=== PATIENT | female | born 1990 | race Caucasian/White ===

== ENCOUNTER 2019-12-26 20:23 | Inpatient (IN) | payer MEDICAID, OTHER ==
[~2019-12-26] VITALS: Ht 170.2 cm; Wt 82.0 kg
[2019-12-26 21:20] LABS: Urine Bacteria FEW /hpf (None Seen); Urine Blood Negative /uL (Negative); Urine Mucus FEW (None Seen); Urine Specific Gravity 1.026 (1.001-1.035); Urine WBC 23 /hpf (0 - 5)
[2019-12-26 22:11] LABS: Basophils # (auto) 0 10 ^3/uL (0-0.2); Basophils % (auto) 0.2 % (0.0-2.0); Eosinophils # (auto) 0 10 ^3/uL (0-0.8); Hematocrit 41.3 % (36.0-46.0); Hemoglobin 13.3 g/dL (12.2-16.2); Lymphocytes # (auto) 0.9 10 ^3/uL (0.4-5.4); Lymphocytes % (auto) 4.4 % (10.0-50.0); Mean Corpuscular Hemoglobin 26.8 pg (28.0-32.0); Mean Corpuscular Hgb Conc. 32.2 g/dL (32.0-36.0); Mean Corpuscular Volume 83.1 fL (80.0-100.0); Monocytes # (auto) 1.4 10 ^3/uL (0-1.3); Monocytes % (auto) 7.3 % (0.0-12.0); Neutrophils # (auto) 17.4 10 ^3/uL (1.6-8.6); Neutrophils % (auto) 88.1 % (37.0-80.0); Red Blood Cells 4.97 10^6/uL (4.0-5.20); White Blood Cell 19.8 10^3/uL (4.4-10.8)
[2019-12-26 22:12] LABS: Platelet Count (auto) 221 10^3/uL (140-450); Red Cell Distribution Width 14.9 % (11.8-14.3)
[2019-12-26 22:30] LABS: Albumin 3.6 g/dL (3.4-5.0); Calcium 8.9 mg/dL (8.5-10.1); Magnesium 2.2 mg/dL (1.6-2.6); Potassium 3.5 mmol/L (3.5-5.1)
[2019-12-26 22:34] LABS: Bilirubin, Total 2.7 mg/dL (0.2-1.0)
[2019-12-26] MEDS ORDERED: cefTRIAXone 1GM/50ML D5W 50 ML IV ONE (23:00)
[2019-12-26] MEDS ORDERED: metroNIDAZOLE 500MG/100ML 100 ML IV ONE (23:00)
[2019-12-26] MEDS ORDERED: SODIUM CHLORIDE 0.9% 1,000 ML IV SCH (23:16)
[2019-12-26] MEDS ORDERED: DOCUSATE SOD 100 MG CAP PO PRN (23:30)
[2019-12-26] MEDS ORDERED: MORPHINE SULF INJ 2 MG/ML SYRINGE 1ML IV PRN (23:30)
[2019-12-26] MEDS ORDERED: LORazepam 0.5 MG TAB PO PRN (23:30)
[2019-12-26] MEDS ORDERED: SODIUM CHLORIDE 0.9% 1,000 ML IV ONE (23:30)
[2019-12-26] MEDS ORDERED: ONDANSETRON HCL 4 MG/2 ML VIAL IV PRN (23:30)
[2019-12-26] MEDS ORDERED: ACETAMINOPHEN 325 MG TAB PO PRN (23:30)
[2019-12-26] MEDS ORDERED: HYDROcodone-ACET 5/325MG TAB PO PRN (23:30)
--- NOTE | 2019-12-27 02:50 | NUR ---
MS admit from ER: Patient admitted to [facility]. Patient oriented to primary RN, unit, room, bed, and unit policies regarding patient care and visiting hours. Patient weighed by bed scale and encouraged to call if they need something. Bed in lowest locked position with two side rails raised and call gardner within reach. Instructed on POC, All questions and concerns addressed, patient verbalized understanding.
--- NOTE | 2019-12-27 03:30 | NUR ---
Patient's pepper spray in bag with label and now with security.
[2019-12-27 03:49] VITALS: BP 125/73
--- NOTE | 2019-12-27 04:30 | NUR ---
Patient is refusing labs, vitals, and treatments stating "I need my sleep and I don't want people bothering me. The doctor will just have to reschedule my surgery." Discussed risks, patient continues to refuse any treatments at this time. Will continue to provide education and monitor patient
[2019-12-27 05:00] VITALS: BP 125/73
--- NOTE | 2019-12-27 05:19 | NUR ---
After speaking with patient about risks and benefits of surgery she agreed to allow lab to draw blood. Patient still refuses vitals and medications at this time. Will continue to provide education and monitor patient.
[2019-12-27 05:33] LABS: Basophils # (auto) 0.1 10 ^3/uL (0-0.2); Eosinophils # (auto) 0 10 ^3/uL (0-0.8); Monocytes # (auto) 1.1 10 ^3/uL (0-1.3); Monocytes % (auto) 6.7 % (0.0-12.0)
[2019-12-27 05:34] LABS: Basophils % (auto) 0.5 % (0.0-2.0); Eosinophils % (auto) 0.1 % (0.0-7.0); Hematocrit 38.6 % (36.0-46.0); Hemoglobin 12.7 g/dL (12.2-16.2); Lymphocytes # (auto) 1.6 10 ^3/uL (0.4-5.4); Lymphocytes % (auto) 9.8 % (10.0-50.0); Mean Corpuscular Hemoglobin 27.3 pg (28.0-32.0); Mean Corpuscular Hgb Conc. 32.9 g/dL (32.0-36.0); Mean Corpuscular Volume 82.8 fL (80.0-100.0); Neutrophils # (auto) 13.5 10 ^3/uL (1.6-8.6); Neutrophils % (auto) 82.9 % (37.0-80.0); Platelet Count (auto) 198 10^3/uL (140-450); Red Blood Cells 4.66 10^6/uL (4.0-5.20); Red Cell Distribution Width 15.2 % (11.8-14.3); White Blood Cell 16.3 10^3/uL (4.4-10.8)
[2019-12-27] MEDS: metroNIDAZOLE 500MG/100ML 100 ML IV SCH ×3 (05:41→17:25)
--- NOTE | 2019-12-27 05:41 | NUR ---
Patient states, "I do not believe this is actually appendicitis and I want someone to show me the scans and point out the source so I can see for myself." Education provided regarding diagnosis, and patient would still like to speak to MD regarding the need for surgery and would like to explore alternative methods. Will endorse
[2019-12-27 05:55] LABS: Calcium 8.1 mg/dL (8.5-10.1); Potassium 3.9 mmol/L (3.5-5.1)
--- NOTE | 2019-12-27 07:30 | NUR ---
Opening Shift Note Assumed care of patient, awake and alert. No S/S of distress/SOB or pain. Instructed on POC and to call for assist PRN, will continue to monitor for changes Q1hr and PRN.
[2019-12-27 07:45] LABS: INR 1.11 (0.9-1.15); Partial Thromboplastin Time 26.5 sec (23.64-32.05)
--- NOTE | 2019-12-27 09:05 | NUR ---
Opening shift note: Assumed care of patient. Patient awake, alert and oriented x 4. No s/s of SOB or distress, patient denies pain. Bed in lowest locked position with two side rails raised and call gardner within reach. Instructed on POC and encouraged to use call gardner for assistance, all questions and concerns addressed, patient verbalizes understanding. Will continue to monitor Q1 hr and PRN. Addendum: 12/27/19 at 1928 by ALMA VARGAS RN RN Wrong time. Time 1904
--- NOTE | 2019-12-27 10:35 | NUR ---
Patient taken to OR via bed. Chart, consents, surgical checklist in chart. Surgical consents not signed as Dr. Bustamante has not yet spoken to the patient. Per [employer], Dr. Bustamante will speak to the patient in Pre-op. Patient informed and agrees.
[2019-12-27] MEDS ORDERED: LIDOCAINE 1% (LOCAL ANESTH.) PF 5ml SDV ONE (10:51)
[2019-12-27] MEDS ORDERED: SUCCINYLCHOLINE CHLORIDE 20 MG/ML 10ML VIAL IV ONE (10:51)
[2019-12-27] MEDS ORDERED: ROCURONIUM 10MG/ML 10ML VIAL IV ONE (10:55)
[2019-12-27] MEDS ORDERED: PROPOFOL 10 MG/ML 20 ML IV ONE (10:58)
[2019-12-27] MEDS ORDERED: HYDROmorphone HCL 2 MG/ML VL IV PRN ×3 (11:00→12:00)
[2019-12-27] MEDS ORDERED: ONDANSETRON HCL 4 MG/2 ML VIAL IV PRN ×2 (11:00→12:00)
[2019-12-27] MEDS ORDERED: NALOXONE HCL 0.4 MG/ML VIAL IV PRN (11:00)
[2019-12-27] MEDS ORDERED: MIDAZOLAM HCL 1MG/1ML-2 ML VIAL ONE (11:09)
[2019-12-27] MEDS ORDERED: fentaNYL CITRATE 100 MCG/2 ML VL ONE (11:18)
[2019-12-27] MEDS ORDERED: STERILE WATER 10 ML ONE (11:32)
[2019-12-27] MEDS ORDERED: ePHEDrine SULFATE 50 MG/ML AMP ONE (11:32)
[2019-12-27] MEDS ORDERED: GLYCOPYRROLATE 0.2 MG/ML 1ML VIAL ONE (11:46)
[2019-12-27] MEDS ORDERED: NEOSTIGMINE 1 MG/ML INJ (10mg/10ML VIAL) ONE (11:46)
--- NOTE | 2019-12-27 12:55 | NUR ---
Patient returned to room. Patient is sleepy but alert and oriented. Three small dressings noted to abdomen. NILDA drain to RLQ. Abdominal binder in place. Call light in reach. Will continue to monitor.
--- NOTE | 2019-12-27 14:45 | NUR ---
Patient ambulated to the bathroom with standby assist. Tolerated well. Patient states she was able to void. Will continue to monitor.
--- NOTE | 2019-12-27 16:07 | NUR ---
Patient is sleeping without distress. Call light in reach. Will continue to monitor.
[2019-12-27 16:49] VITALS: BP 131/80
--- NOTE | 2019-12-27 16:51 | NUR ---
Dr. Gabino Nguyen in to see patient as primary MD. Dr. Nguyen informed the patient has been OOB and ambulated to the bathroom. He explained to the patient that she will probably be discharged in AM.
[2019-12-27] MEDS: D5W/SOD CHL 0.45%/KCL 20MEQ 1,000 ML IV SCH ×2 (17:25→21:27)
--- NOTE | 2019-12-27 19:05 | NUR ---
Opening shift note: Assumed care of patient. Patient awake, alert and oriented x 4. No s/s of SOB or distress, patient denies pain. Bed in lowest locked position with two side rails raised and call gardner within reach. Instructed on POC and encouraged to use call gardner for assistance, all questions and concerns addressed, patient verbalizes understanding. Will continue to monitor Q1 hr and PRN.
--- NOTE | 2019-12-27 19:30 | NUR ---
Patient ambulating in the [place] with standby assistance. Patient tolerating well. Will continue to monitor.
[2019-12-27 21:00] VITALS: BP 121/79
[2019-12-27] MEDS ORDERED: cefTRIAXone 1GM/50ML D5W 50 ML IV SCH (22:00)
[2019-12-28] MEDS: metroNIDAZOLE 500MG/100ML 100 ML IV SCH ×3 (00:11→11:12)
[2019-12-28] MEDS ORDERED: HYDROcodone-ACET 5/325MG TAB PO PRN (01:15)
[2019-12-28 05:00] VITALS: BP 116/84
[2019-12-28] MEDS: ACETAMINOPHEN 325 MG TAB PO PRN ×2 (05:27→13:35)
[2019-12-28 06:49] LABS: Basophils # (auto) 0 10 ^3/uL (0-0.2); Basophils % (auto) 0.2 % (0.0-2.0); Eosinophils # (auto) 0 10 ^3/uL (0-0.8); Eosinophils % (auto) 0.1 % (0.0-7.0); Hemoglobin 12.6 g/dL (12.2-16.2); Lymphocytes # (auto) 1.4 10 ^3/uL (0.4-5.4); Monocytes # (auto) 0.9 10 ^3/uL (0-1.3); Neutrophils # (auto) 11.1 10 ^3/uL (1.6-8.6); White Blood Cell 13.5 10^3/uL (4.4-10.8)
[2019-12-28 06:52] LABS: Hematocrit 38.8 % (36.0-46.0); Lymphocytes % (auto) 10.5 % (10.0-50.0); Mean Corpuscular Hgb Conc. 32.4 g/dL (32.0-36.0); Mean Corpuscular Volume 83.2 fL (80.0-100.0); Neutrophils % (auto) 82.2 % (37.0-80.0); Platelet Count (auto) 203 10^3/uL (140-450); Red Blood Cells 4.67 10^6/uL (4.0-5.20); Red Cell Distribution Width 15.1 % (11.8-14.3)
[2019-12-28 07:11] LABS: Calcium 8.5 mg/dL (8.5-10.1); Magnesium 2.5 mg/dL (1.6-2.6); Potassium 3.7 mmol/L (3.5-5.1)
[2019-12-28 07:14] LABS: BUN/Creatinine Ratio 11.3
--- NOTE | 2019-12-28 07:40 | NUR ---
Opening Note Assumed pt care from NOC RN. Pt is a/ox4 with no s/s of distress or SOB. Pt is currently laying in bed with no complaints at this time.Iscision to abdomen is clean, dry and intact. NILDA drain is present, minimal serous sanguinous drainage present. Discussed POC with pt; pt verbalized understanding. Safety measures maintained with call light within reach, bed in lowest position and side rails p. Will continue to monitor.
[2019-12-28] MEDS: D5W/SOD CHL 0.45%/KCL 20MEQ 1,000 ML IV SCH (08:00)
[2019-12-28 09:00] VITALS: BP 121/81
--- NOTE | 2019-12-28 10:02 | NUR ---
NILDA Drain 15 mL of serous sanguinous drainage drained from NILDA drain.
[2019-12-28 13:00] VITALS: BP 130/65
--- NOTE | 2019-12-28 13:15 | NUR ---
Dr Aleksander Nguyen Called Requested update on patient. Requested that we have Robby clear pt before d/c. Paged Dr Bustamante for clearance. Will continue to monitor and notify MD> Addendum: 12/28/19 at 1438 by ERIC COLORADO RN RN Second page sent out to Dr Bustamante. Will continue to monitor. Addendum: 12/28/19 at 1458 by ERIC COLORADO RN RN Dr Bustamante paged back; cleared pt for d/c. Paged Dr Nguyen for update. Will continue to monitor. Addendum: 12/28/19 at 1632 by ERIC COLORADO RN RN Second page sent to Dr Aleksander Nguyen. Will continue to monitor. Addendum: 12/28/19 at 1656 by ERIC COLORADO RN RN PAGED BACK. ORDERS PROVIDED. WILL IMPLEMENT.
[2019-12-28] MEDS ORDERED: HYDR-4833 PO (16:41)
[2019-12-28] MEDS ORDERED: LEVO500T21 PO (16:41)
[2019-12-28] MEDS ORDERED: METR500T PO (16:41)
[2019-12-28 16:54] VITALS: BP 130/65
--- NOTE | 2019-12-28 17:28 | NUR ---
IV D/C'ed IV to pt's L hand d/c'ed. Catheter was removed fully intact. Site is asymptomatic. Pressure was applied to site for 3 minutes with gauze and then wrapped in coban. Pt instructed to keep dressing on for 30 minutes.
--- NOTE | 2019-12-28 17:35 | NUR ---
Assessment Patient is a 29-year-old female who is alert and oriented. Prior to admission patient lived with family and functioned independently. Patient informed me she does not have any DME now. Per patient she will return home to her prior living arrangements post discharge and family will transport home. Advised patient there is a social service consult for home health safety evaluation, wound care and possible drain care. Informed patient clinical information will be faxed to contracted agencies. Informed patient she has the right to participate in all discharge planning. Patient verbalized understanding and agreed to discharge plan. Faxed clinical information to [facility] and [facility] . Per Hanane with [facility] [phone] patient has been accepted and service to start within 24-48hrs upon d/c day. Obtain authorization from [facility] for home health [id number]. Addendum: 12/28/19 at 1737 by FOSTER ANDERSON Amended: Links added.
--- NOTE | 2019-12-28 18:03 | NUR ---
Pt D/C'ed Off Unit Pt d/c'ed off unit. Pt was wheeled off unit via wheelchair. Pt is a/ox4 with no s/s of distress or SOB. Pt provided all education material, follow up appointment information, prescriptions, and all questions were answered. IV was d/c'ed prior to d/c.
== END 2019-12-28 18:04 | disposition home health service (06) | DRG 234 ==
LOC: ER 20:24 → OVERFLOW 20:25 → WEST WING 12-27 02:50
PROVIDERS: ADMIT Hospitalist; ATTEND Hospitalist
PROC: 0DTJ4ZZ Resection of Appendix, Percutaneous Endoscopic Approach (ICD-10-PCS; principal; 2019-12-27 11:08)
DX: K35.80 Unspecified acute appendicitis (principal); N30.00 Acute cystitis without hematuria
CPT/HCPCS: 36415; 74176; 80048; 80053; 80061; 81001; 81025; 82150; 83690; 83735; 85025; 85610; 85730; 87086; 87088; 87186; 88302; 93005; 96365; 96368; G0378; J0330; J0696; J2250; J2405; J2704; J3490

== ENCOUNTER 2020-11-12 00:49 | Emergency (ER) | payer MEDICAID ==
[~2020-11-12] VITALS: Ht 170.2 cm; Wt 89.4 kg
[~2020-11-12 00:49] MED LIST: HYDR-4833 PO; LEVO500T31 PO; METR500T PO
[2020-11-12 01:07] VITALS: BP 147/74
== END 2020-11-12 03:04 | disposition left against medical advice (07) ==
LOC: ER 00:49
DX: R19.7 Diarrhea, unspecified (principal); Z53.21 Procedure and treatment not carried out due to patient leaving prior to being seen by health care provider